=== PATIENT | male | born 1985 ===

== ENCOUNTER → 2020-08-31 12:02 | Outpatient (CLI) | payer OTHER, SELFPAY ==
--- NOTE | 2020-08-31 | DI.MRI.S_ITS ---
PROCEDURE: MR SHOULDER LT WO CON INDICATIONS: Pain in left shoulder TECHNIQUE: Noncontrast oblique coronal T2 fast spin echo with fat saturation, oblique sagittal T1 spin echo and T2 fast spin echo with fat saturation, axial T1 spin echo and T2 fast spin echo with fat saturation through the shoulder. COMPARISON: None. FINDINGS: Image quality: Excellent. Rotator cuff: The supraspinatus, infraspinatus, and subscapularis tendons appear intact throughout. 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 Bones and bursae: No bone marrow contusions or fractures. No acromioclavicular joint degeneration. The acromion demonstrates conventional anatomy, without an os acromiale. A small amount of subacromial-subdeltoid or subcoracoid bursal fluid is present. Capsule and soft tissues: There is undercutting of the posterior labrum. The long head of the biceps tendon demonstrates normal location and morphology. The rotator interval appears normal, without fibrosis. The coracohumeral ligament is normal in thickness. IMPRESSION: 1. Supraspinatus atrophy. 2. No rotator cuff tear. 3. Probable posterior labral tearing. Dictated by: Genesis Page M.D. on 08/31/2020 at 14:05 Approved by: Genesis Page M.D. on 08/31/2020 at 14:06
== END ==
DX: M25.512 Pain in left shoulder (principal)
CPT/HCPCS: 73221